=== PATIENT | female | born 1945 | race Caucasian/White ===

== ENCOUNTER 2018-07-22 14:53 | Observation (INO) | payer MEDICARE, OTHER ==
[2018-07-22] MEDS: HYDROCODONE/APAP (5/325) TAB PO (16:16)
[2018-07-22] MEDS ORDERED: ACETAMINOPHEN 325 MG TAB PO ×2 (19:30→20:00)
[2018-07-22] MEDS ORDERED: ONDANSETRON 4 MG INJ IV ×2 (19:30→20:00)
[2018-07-22 19:50] LABS: ADD MAN DIFF? NO
[2018-07-22 19:51] LABS: WHITE BLOOD COUNT 6.1 10^3/ul (4.8-10.8)
[2018-07-22 19:51] LABS: BASOPHILS % 0.7 % (0.0-2.0); EOSINOPHILS # 0.1 10^3/ul (0.0-0.5); EOSINOPHILS % 1.5 % (0.0-7.0); HEMATOCRIT 37.2 % (37.0-47.0); HEMOGLOBIN 12.2 g/dl (12.0-16.0); LYMPHOCYTES # 1.3 10^3/ul (0.8-2.9); LYMPHOCYTES % 20.8 % (15.0-51.0); MEAN CORPUSCULAR HEMOGLOBIN 29.8 pg (29.0-33.0); MEAN CORPUSCULAR HGB CONC 32.8 g/dl (32.0-37.0); MEAN CORPUSCULAR VOLUME 90.7 fl (82.0-101.0); MEAN PLATELET VOLUME 10.9 fl (7.4-10.4); MONOCYTE # 0.4 10^3/ul (0.3-0.9); MONOCYTES % 6.1 % (0.0-11.0); NEUTROPHIL # 4.3 10^3/ul (1.6-7.5); NEUTROPHILS % 70.6 % (39.0-77.0); PLATELET COUNT 179 10^3/UL (140-415); RED CELL DISTRIBUTION WIDTH 13.5 % (11.5-14.5)
[2018-07-22] MEDS ORDERED: NACL 0.9% 3 ML SYG IV (20:00)
[2018-07-22 20:03] LABS: ADD UMIC YES; UR ASCORBIC ACID NEGATIVE (NEGATIVE); UR BILIRUBIN (Dip) NEGATIVE (NEGATIVE); UR BLOOD (Dip) 2+ mg/dL (NEGATIVE); UR CALCIUM OXALATE CRYSTAL MODERATE /HPF (NONE SEEN); UR CLARITY SLIGHTLY CLOUDY (CLEAR); UR COLOR YELLOW (YELLOW); UR GLUCOSE (Dip) NEGATIVE (NEGATIVE); UR KETONES (Dip) NEGATIVE (NEGATIVE); UR LEUKOCYTE ESTERASE (Dip) 2+ Leu/ul (NEGATIVE); UR MUCUS FEW /HPF (NONE SEEN); UR NITRITE (Dip) NEGATIVE (NEGATIVE); UR RBC 37 /HPF (0-5); UR SPECIFIC GRAVITY (Dip) 1.021 (1.003-1.030); UR SQUAMOUS EPITHELIAL CELL FEW /HPF (FEW); UR TOTAL PROTEIN (Dip) NEGATIVE (NEGATIVE); UR UROBILINOGEN (Dip) NEGATIVE (NEGATIVE); UR WBC 30 /HPF (0-5)
[2018-07-22 20:09] LABS: ANION GAP 13 (5-13); BLOOD UREA NITROGEN 26 mg/dl (7-20); CALCIUM 9.5 mg/dl (8.4-10.2); CARBON DIOXIDE 27 mmol/L (21-31); CHLORIDE 104 mmol/L (97-110); CREATININE 0.84 mg/dl (0.44-1.00); GLUCOSE 174 mg/dl (70-220); POTASSIUM 3.9 mmol/L (3.5-5.1); SODIUM 144 mmol/L (135-144)
[2018-07-23] MEDS: HYDROCODONE/APAP (5/325) TAB PO (00:08)
[2018-07-23 05:12] LABS: ADD MAN DIFF? NO
[2018-07-23 05:15] LABS: BASOPHILS % 0.7 % (0.0-2.0); EOSINOPHILS # 0.2 10^3/ul (0.0-0.5); EOSINOPHILS % 2.7 % (0.0-7.0); HEMOGLOBIN 10.4 g/dl (12.0-16.0); LYMPHOCYTES # 1.3 10^3/ul (0.8-2.9); LYMPHOCYTES % 23.6 % (15.0-51.0); MEAN CORPUSCULAR HEMOGLOBIN 29.6 pg (29.0-33.0); MEAN CORPUSCULAR HGB CONC 32.5 g/dl (32.0-37.0); MEAN CORPUSCULAR VOLUME 91.2 fl (82.0-101.0); MEAN PLATELET VOLUME 11.8 fl (7.4-10.4); MONOCYTE # 0.5 10^3/ul (0.3-0.9); MONOCYTES % 9.5 % (0.0-11.0); NEUTROPHIL # 3.5 10^3/ul (1.6-7.5); NEUTROPHILS % 63.1 % (39.0-77.0); PLATELET COUNT 169 10^3/UL (140-415); RED BLOOD COUNT 3.51 10^6/ul (4.20-5.40); RED CELL DISTRIBUTION WIDTH 13.5 % (11.5-14.5)
[2018-07-23 05:15] LABS: WHITE BLOOD COUNT 5.5 10^3/ul (4.8-10.8)
[2018-07-23 05:36] LABS: HEMOGLOBIN A1C 5.4 % (0-5.9)
[2018-07-23 05:48] LABS: ALANINE AMINOTRANSFERASE 18 IU/L (13-69); ALBUMIN 3.8 g/dl (3.3-4.9); ALBUMIN/GLOBULIN RATIO 1.26; ALKALINE PHOSPHATASE 62 IU/L (42-121); ANION GAP 9 (5-13); ASPARTATE AMINO TRANSFERASE 27 IU/L (15-46); BILIRUBIN,INDIRECT 0.1 mg/dl (0-1.1); BILIRUBIN,TOTAL 0.1 mg/dl (0.2-1.3); BLOOD UREA NITROGEN 27 mg/dl (7-20); CALCIUM 9.2 mg/dl (8.4-10.2); CARBON DIOXIDE 26 mmol/L (21-31); CHLORIDE 106 mmol/L (97-110); CREATININE 0.84 mg/dl (0.44-1.00); GLUCOSE 121 mg/dl (70-220); MAGNESIUM 1.7 mg/dl (1.7-2.5); POTASSIUM 3.5 mmol/L (3.5-5.1); SODIUM 141 mmol/L (135-144); TOTAL PROTEIN 6.8 g/dl (6.1-8.1)
== END 2018-07-23 11:45 | disposition home or self-care (01) ==
LOC: MS1 07-23 09:14 → E/R 14:53 → MS1 19:15
DX: R07.89 Other chest pain (principal); M54.5 Low back pain; W01.0XXA Fall on same level from slipping, tripping and stumbling without subsequent striking against object, initial encounter; E11.43 Type 2 diabetes mellitus with diabetic autonomic (poly)neuropathy; K31.84 Gastroparesis; M48.061 Spinal stenosis, lumbar region without neurogenic claudication; M47.896 Other spondylosis, lumbar region
CPT/HCPCS: 36415; 71045; 71100; 72128; 72131; 80048; 80053; 81001; 83036; 83735; 85025; 97161; 97167; 99285-25; G0378

== ENCOUNTER 2018-09-12 19:40 | Emergency (ER) | payer MEDICARE, OTHER ==
[2018-09-12 20:21] LABS: ADD MAN DIFF? NO
[2018-09-12 20:27] LABS: INR 0.95; PROTIME 12.8 Sec (11.9-14.9)
[2018-09-12 20:28] LABS: PARTIAL THROMBOPLASTIN TIME 32.3 Sec (23.0-35.0)
[2018-09-12 20:32] LABS: ANION GAP 11 (5-13); BLOOD UREA NITROGEN 24 mg/dl (7-20); CALCIUM 9.1 mg/dl (8.4-10.2); CARBON DIOXIDE 31 mmol/L (21-31); CHLORIDE 103 mmol/L (97-110); GLUCOSE 114 mg/dl (70-220); POTASSIUM 3.2 mmol/L (3.5-5.1); SODIUM 145 mmol/L (135-144)
[2018-09-12 20:37] LABS: WHITE BLOOD COUNT 5.6 10^3/ul (4.8-10.8)
[2018-09-12 20:37] LABS: BASOPHIL # 0.1 10^3/ul (0.0-0.1); BASOPHILS % 0.9 % (0.0-2.0); EOSINOPHILS # 0.2 10^3/ul (0.0-0.5); EOSINOPHILS % 3.6 % (0.0-7.0); HEMATOCRIT 33.2 % (37.0-47.0); HEMOGLOBIN 10.7 g/dl (12.0-16.0); LYMPHOCYTES % 18.6 % (15.0-51.0); MEAN CORPUSCULAR HEMOGLOBIN 28.8 pg (29.0-33.0); MEAN CORPUSCULAR HGB CONC 32.2 g/dl (32.0-37.0); MEAN CORPUSCULAR VOLUME 89.2 fl (82.0-101.0); MEAN PLATELET VOLUME 11.1 fl (7.4-10.4); MONOCYTE # 0.4 10^3/ul (0.3-0.9); MONOCYTES % 6.6 % (0.0-11.0); NEUTROPHIL # 3.9 10^3/ul (1.6-7.5); NEUTROPHILS % 69.9 % (39.0-77.0); PLATELET COUNT 179 10^3/UL (140-415); RED BLOOD COUNT 3.72 10^6/ul (4.20-5.40); RED CELL DISTRIBUTION WIDTH 13.6 % (11.5-14.5)
[2018-09-12 20:43] LABS: TROPONIN-I < 0.012 ng/ml (0.000-0.120)
[2018-09-12] MEDS: SOD CHLORIDE 0.9% 1,000 ML IV (21:32)
[2018-09-12 21:56] LABS: URINE PH (Dip) POC 5.5 (5.0-8.5)
[2018-09-12 21:56] LABS: URINE BLOOD (Dip) POC 3+ (NEGATIVE); URINE GLUCOSE (Dip) POC Negative (NEGATIVE); URINE KETONES (Dip) POC Negative (NEGATIVE); URINE LEUKOCYTE EST (Dip) POC 1+ (NEGATIVE); URINE NITRITE (Dip) POC Negative (NEGATIVE); URINE TOTAL PROTEIN POC 2+ (NEGATIVE)
[2018-09-12 22:15] LABS: ADD UMIC YES; UR ASCORBIC ACID NEGATIVE (NEGATIVE); UR BILIRUBIN (Dip) NEGATIVE (NEGATIVE); UR BLOOD (Dip) 3+ mg/dL (NEGATIVE); UR CLARITY SLIGHTLY CLOUDY (CLEAR); UR COLOR YELLOW (YELLOW); UR GLUCOSE (Dip) NEGATIVE (NEGATIVE); UR KETONES (Dip) NEGATIVE (NEGATIVE); UR LEUKOCYTE ESTERASE (Dip) 1+ Leu/ul (NEGATIVE); UR NITRITE (Dip) NEGATIVE (NEGATIVE); UR RBC > 182 /HPF (0-5); UR SPECIFIC GRAVITY (Dip) 1.016 (1.003-1.030); UR TOTAL PROTEIN (Dip) NEGATIVE (NEGATIVE); UR UROBILINOGEN (Dip) NEGATIVE (NEGATIVE); UR WBC 14 /HPF (0-5)
[2018-09-12] MEDS: NITROFURANTOIN (SR) 100 MG CAP PO (23:28)
[2018-09-13] MEDS: IBUPROFEN 200 MG TAB PO (00:18)
== END 2018-09-13 01:40 | disposition home or self-care (01) ==
LOC: E/R 09-13 01:40
DX: I11.0 Hypertensive heart disease with heart failure (principal); I50.9 Heart failure, unspecified; E11.9 Type 2 diabetes mellitus without complications; N39.0 Urinary tract infection, site not specified; H53.8 Other visual disturbances
CPT/HCPCS: 36415; 70450; 71045; 80048; 81001; 81003; 84484; 85025; 85610; 85730; 96360; 99285-25

== ENCOUNTER 2018-09-25 19:10 | Emergency (ER) | payer MEDICARE, OTHER ==
[2018-09-25] MEDS: IBUPROFEN 600 MG TAB PO (21:45)
[2018-09-25] MEDS: predniSONE 20 MG TAB PO (22:21)
== END 2018-09-25 23:49 | disposition home or self-care (01) ==
LOC: FTE 23:49
DX: M79.671 Pain in right foot (principal); I11.0 Hypertensive heart disease with heart failure; I50.9 Heart failure, unspecified
CPT/HCPCS: 73630; 99283-25

== ENCOUNTER 2018-10-02 19:41 | Emergency (ER) | payer MEDICARE, OTHER | END 2018-10-02 22:00 | disposition home or self-care (01) | LOC: FTE 19:41 | DX: L30.9 Dermatitis, unspecified (principal); I11.0 Hypertensive heart disease with heart failure; I50.9 Heart failure, unspecified; E11.9 Type 2 diabetes mellitus without complications | CPT/HCPCS: 99283 ==

== ENCOUNTER 2018-10-06 14:08 | Observation (INO) | payer MEDICARE, OTHER ==
[2018-10-06 14:58] LABS: ADD MAN DIFF? NO
[2018-10-06] MEDS: ONDANSETRON 4 MG INJ IV ×3 (14:58→23:03)
[2018-10-06] MEDS: SOD CHLORIDE 0.9% 1,000 ML IV ×2 (14:59→19:31)
[2018-10-06 15:03] LABS: ABNORMAL IP MESSAGE 1; BASOPHILS % 0.6 % (0.0-2.0); EOSINOPHILS # 0.1 10^3/ul (0.0-0.5); EOSINOPHILS % 1.4 % (0.0-7.0); HEMATOCRIT 35.1 % (37.0-47.0); HEMOGLOBIN 11.4 g/dl (12.0-16.0); LYMPHOCYTES # 0.6 10^3/ul (0.8-2.9); LYMPHOCYTES % 8.7 % (15.0-51.0); MEAN CORPUSCULAR HEMOGLOBIN 28.9 pg (29.0-33.0); MEAN CORPUSCULAR HGB CONC 32.5 g/dl (32.0-37.0); MEAN CORPUSCULAR VOLUME 89.1 fl (82.0-101.0); MEAN PLATELET VOLUME 10.8 fl (7.4-10.4); MONOCYTE # 0.3 10^3/ul (0.3-0.9); MONOCYTES % 4.7 % (0.0-11.0); NEUTROPHIL # 5.5 10^3/ul (1.6-7.5); NEUTROPHILS % 84.1 % (39.0-77.0); PLATELET COUNT 197 10^3/UL (140-415); RED BLOOD COUNT 3.94 10^6/ul (4.20-5.40); RED CELL DISTRIBUTION WIDTH 13.5 % (11.5-14.5)
[2018-10-06 15:03] LABS: WHITE BLOOD COUNT 6.6 10^3/ul (4.8-10.8)
[2018-10-06 15:16] LABS: POSITIVE DIFF @See below
[2018-10-06 15:22] LABS: ALANINE AMINOTRANSFERASE 16 IU/L (13-69); ALBUMIN 4.3 g/dl (3.3-4.9); ALBUMIN/GLOBULIN RATIO 1.13; ALKALINE PHOSPHATASE 101 IU/L (42-121); ANION GAP 10 (5-13); ASPARTATE AMINO TRANSFERASE 29 IU/L (15-46); BILIRUBIN,INDIRECT 0.5 mg/dl (0-1.1); BILIRUBIN,TOTAL 0.5 mg/dl (0.2-1.3); BLOOD UREA NITROGEN 23 mg/dl (7-20); CALCIUM 9.8 mg/dl (8.4-10.2); CARBON DIOXIDE 28 mmol/L (21-31); CHLORIDE 105 mmol/L (97-110); CREATININE 0.85 mg/dl (0.44-1.00); GLUCOSE 127 mg/dl (70-220); LIPASE 68 U/L (23-300); POTASSIUM 3.5 mmol/L (3.5-5.1); SODIUM 143 mmol/L (135-144); TOTAL PROTEIN 8.1 g/dl (6.1-8.1)
[2018-10-06] MEDS ORDERED: ACETAMINOPHEN 325 MG TAB PO (19:30)
[2018-10-06] MEDS ORDERED: NACL 0.9% 3 ML SYG IV (20:00)
[2018-10-06] MEDS ORDERED: HYDROmorphONE 0.5 MG/0.5 ML SYG IV (20:00)
[2018-10-06] MEDS: morphine 2 MG INJ IV (21:34)
[2018-10-07 05:51] LABS: ADD MAN DIFF? NO
[2018-10-07 05:57] LABS: BASOPHILS % 0.8 % (0.0-2.0); EOSINOPHILS # 0.1 10^3/ul (0.0-0.5); EOSINOPHILS % 2.1 % (0.0-7.0); HEMATOCRIT 28.9 % (37.0-47.0); HEMOGLOBIN 9.5 g/dl (12.0-16.0); LYMPHOCYTES # 0.8 10^3/ul (0.8-2.9); LYMPHOCYTES % 15.7 % (15.0-51.0); MEAN CORPUSCULAR HEMOGLOBIN 28.8 pg (29.0-33.0); MEAN CORPUSCULAR HGB CONC 32.9 g/dl (32.0-37.0); MEAN CORPUSCULAR VOLUME 87.6 fl (82.0-101.0); MEAN PLATELET VOLUME 11.3 fl (7.4-10.4); MONOCYTE # 0.3 10^3/ul (0.3-0.9); MONOCYTES % 6.3 % (0.0-11.0); NEUTROPHIL # 3.9 10^3/ul (1.6-7.5); NEUTROPHILS % 74.7 % (39.0-77.0); PLATELET COUNT 173 10^3/UL (140-415); RED CELL DISTRIBUTION WIDTH 13.4 % (11.5-14.5)
[2018-10-07 05:57] LABS: WHITE BLOOD COUNT 5.2 10^3/ul (4.8-10.8)
[2018-10-07 06:30] LABS: ALANINE AMINOTRANSFERASE 16 IU/L (13-69); ALBUMIN 3.3 g/dl (3.3-4.9); ALKALINE PHOSPHATASE 73 IU/L (42-121); ANION GAP 7 (5-13); ASPARTATE AMINO TRANSFERASE 22 IU/L (15-46); BILIRUBIN,INDIRECT 0.4 mg/dl (0-1.1); BILIRUBIN,TOTAL 0.4 mg/dl (0.2-1.3); BLOOD UREA NITROGEN 15 mg/dl (7-20); CALCIUM 8.9 mg/dl (8.4-10.2); CARBON DIOXIDE 25 mmol/L (21-31); CHLORIDE 111 mmol/L (97-110); CREATININE 0.72 mg/dl (0.44-1.00); GLUCOSE 119 mg/dl (70-220); POTASSIUM 3.4 mmol/L (3.5-5.1); SODIUM 143 mmol/L (135-144); TOTAL PROTEIN 6.3 g/dl (6.1-8.1)
[2018-10-07 06:42] LABS: HEMOGLOBIN A1C 5.6 % (0-5.9)
== END 2018-10-07 11:55 | disposition home or self-care (01) ==
LOC: E/R 14:08 → PP2 19:18
DX: E11.43 Type 2 diabetes mellitus with diabetic autonomic (poly)neuropathy (principal); K31.84 Gastroparesis
CPT/HCPCS: 36415; 74176; 80053; 83036; 83690; 85025; 96374; 99285-25; G0378

== ENCOUNTER 2018-10-15 13:32 | Observation (INO) | payer MEDICARE, OTHER ==
[2018-10-15 19:52] LABS: ADD MAN DIFF? NO
[2018-10-15 19:56] LABS: BASOPHIL # 0.1 10^3/ul (0.0-0.1); BASOPHILS % 1.1 % (0.0-2.0); EOSINOPHILS # 0.2 10^3/ul (0.0-0.5); EOSINOPHILS % 3.4 % (0.0-7.0); HEMATOCRIT 36.3 % (37.0-47.0); HEMOGLOBIN 11.7 g/dl (12.0-16.0); LYMPHOCYTES # 1.2 10^3/ul (0.8-2.9); LYMPHOCYTES % 19.7 % (15.0-51.0); MEAN CORPUSCULAR HGB CONC 32.2 g/dl (32.0-37.0); MEAN CORPUSCULAR VOLUME 89.9 fl (82.0-101.0); MEAN PLATELET VOLUME 11.5 fl (7.4-10.4); MONOCYTE # 0.5 10^3/ul (0.3-0.9); MONOCYTES % 7.5 % (0.0-11.0); NEUTROPHIL # 4.2 10^3/ul (1.6-7.5); PLATELET COUNT 191 10^3/UL (140-415); RED BLOOD COUNT 4.04 10^6/ul (4.20-5.40); RED CELL DISTRIBUTION WIDTH 13.6 % (11.5-14.5)
[2018-10-15 19:56] LABS: WHITE BLOOD COUNT 6.2 10^3/ul (4.8-10.8)
[2018-10-15 20:02] LABS: POSITIVE DIFF @See below
[2018-10-15] MEDS: ONDANSETRON 4 MG INJ IV (20:06)
[2018-10-15 20:09] LABS: ADD UMIC YES; UR ASCORBIC ACID NEGATIVE (NEGATIVE); UR BACTERIA FEW /HPF (NONE SEEN); UR BILIRUBIN (Dip) NEGATIVE (NEGATIVE); UR BLOOD (Dip) 3+ mg/dL (NEGATIVE); UR CLARITY CLOUDY (CLEAR); UR COLOR YELLOW (YELLOW); UR GLUCOSE (Dip) NEGATIVE (NEGATIVE); UR KETONES (Dip) NEGATIVE (NEGATIVE); UR LEUKOCYTE ESTERASE (Dip) 3+ Leu/ul (NEGATIVE); UR MUCUS FEW /HPF (NONE SEEN); UR NITRITE (Dip) NEGATIVE (NEGATIVE); UR RBC > 182 /HPF (0-5); UR SPECIFIC GRAVITY (Dip) 1.025 (1.003-1.030); UR SQUAMOUS EPITHELIAL CELL FEW /HPF (FEW); UR TOTAL PROTEIN (Dip) 2+ mg/dl (NEGATIVE); UR UROBILINOGEN (Dip) NEGATIVE (NEGATIVE); UR WBC 117 /HPF (0-5)
[2018-10-15 20:14] LABS: ALANINE AMINOTRANSFERASE 17 IU/L (13-69); ALBUMIN 4.3 g/dl (3.3-4.9); ALBUMIN/GLOBULIN RATIO 1.16; ALKALINE PHOSPHATASE 110 IU/L (42-121); ANION GAP 8 (5-13); ASPARTATE AMINO TRANSFERASE 28 IU/L (15-46); BILIRUBIN,INDIRECT 0.4 mg/dl (0-1.1); BILIRUBIN,TOTAL 0.4 mg/dl (0.2-1.3); BLOOD UREA NITROGEN 25 mg/dl (7-20); CALCIUM 9.4 mg/dl (8.4-10.2); CARBON DIOXIDE 30 mmol/L (21-31); CHLORIDE 105 mmol/L (97-110); CREATININE 0.85 mg/dl (0.44-1.00); GLUCOSE 129 mg/dl (70-220); LIPASE 102 U/L (23-300); POTASSIUM 3.6 mmol/L (3.5-5.1); SODIUM 143 mmol/L (135-144)
[2018-10-15 20:25] LABS: TROPONIN-I < 0.012 ng/ml (0.000-0.120)
[2018-10-15] MEDS: METOCLOPRAMIDE 10 MG INJ IV (21:10)
[2018-10-15] MEDS: DIPHENHYDRAMINE 50 MG INJ IV (21:10)
[2018-10-15] MEDS: CEFTRIAXONE 1 GM/50 ML (PMX) 50 ML IVPB (21:11)
[2018-10-15] MEDS: SODIUM CHLORIDE 0.9% 1L BAG IV* (21:11)
[2018-10-15 23:05] LABS: LACTIC ACID 0.8 mmol/L (0.5-2.0)
[2018-10-15] MEDS ORDERED: NACL 0.9% 3 ML SYG IV (23:30)
[2018-10-15] MEDS ORDERED: ALBUTEROL/IPRATROPIUM (NEB) 3 ML AMP HHN (23:30)
[2018-10-15] MEDS: DEXTROSE 5%-0.45% NACL 1,000 ML IV (23:56)
[2018-10-16 01:15] LABS: LACTIC ACID 0.6 mmol/L (0.5-2.0)
[2018-10-16] MEDS: METOCLOPRAMIDE 10 MG INJ IV (04:32)
[2018-10-16 06:36] LABS: ADD MAN DIFF? NO
[2018-10-16 06:37] LABS: WHITE BLOOD COUNT 5.1 10^3/ul (4.8-10.8)
[2018-10-16 06:37] LABS: BASOPHIL # 0.1 10^3/ul (0.0-0.1); BASOPHILS % 1.2 % (0.0-2.0); EOSINOPHILS # 0.2 10^3/ul (0.0-0.5); EOSINOPHILS % 4.7 % (0.0-7.0); HEMATOCRIT 31.9 % (37.0-47.0); HEMOGLOBIN 10.2 g/dl (12.0-16.0); LYMPHOCYTES # 0.9 10^3/ul (0.8-2.9); LYMPHOCYTES % 18.5 % (15.0-51.0); MEAN CORPUSCULAR HEMOGLOBIN 28.5 pg (29.0-33.0); MEAN CORPUSCULAR VOLUME 89.1 fl (82.0-101.0); MEAN PLATELET VOLUME 11.1 fl (7.4-10.4); MONOCYTE # 0.5 10^3/ul (0.3-0.9); MONOCYTES % 9.1 % (0.0-11.0); NEUTROPHIL # 3.4 10^3/ul (1.6-7.5); NEUTROPHILS % 66.1 % (39.0-77.0); PLATELET COUNT 173 10^3/UL (140-415); RED BLOOD COUNT 3.58 10^6/ul (4.20-5.40); RED CELL DISTRIBUTION WIDTH 13.5 % (11.5-14.5)
[2018-10-16 07:00] LABS: ALANINE AMINOTRANSFERASE 14 IU/L (13-69); ALBUMIN 3.5 g/dl (3.3-4.9); ALBUMIN/GLOBULIN RATIO 1.29; ALKALINE PHOSPHATASE 76 IU/L (42-121); ANION GAP 5 (5-13); ASPARTATE AMINO TRANSFERASE 23 IU/L (15-46); BILIRUBIN,INDIRECT 0.4 mg/dl (0-1.1); BILIRUBIN,TOTAL 0.4 mg/dl (0.2-1.3); BLOOD UREA NITROGEN 20 mg/dl (7-20); CALCIUM 8.8 mg/dl (8.4-10.2); CARBON DIOXIDE 29 mmol/L (21-31); CHLORIDE 108 mmol/L (97-110); GLUCOSE 119 mg/dl (70-220); PHOSPHORUS 3.6 mg/dl (2.5-4.9); POTASSIUM 3.5 mmol/L (3.5-5.1); SODIUM 142 mmol/L (135-144); TOTAL PROTEIN 6.2 g/dl (6.1-8.1)
[2018-10-16 07:16] LABS: MAGNESIUM 1.7 mg/dl (1.7-2.5)
[2018-10-16] MEDS: CEFTRIAXONE 1 GM/50 ML (PMX) 50 ML IVPB (09:06)
[2018-10-16] MEDS: HEPARIN 5,000 UNIT/1 ML VIAL SC ×2 (09:11→21:21)
[2018-10-16] MEDS: DEXTROSE 5%-0.45% NACL 1,000 ML IV ×3 (14:00→16:00)
[2018-10-17] MEDS: DEXTROSE 5%-0.45% NACL 1,000 ML IV ×4 (00:25→23:51)
[2018-10-17] MEDS: METOCLOPRAMIDE 10 MG INJ IV (06:45)
[2018-10-17 08:15] LABS: ADD MAN DIFF? NO
[2018-10-17 08:25] LABS: WHITE BLOOD COUNT 4.8 10^3/ul (4.8-10.8)
[2018-10-17 08:25] LABS: BASOPHIL # 0.1 10^3/ul (0.0-0.1); BASOPHILS % 1.5 % (0.0-2.0); EOSINOPHILS # 0.2 10^3/ul (0.0-0.5); EOSINOPHILS % 4.8 % (0.0-7.0); HEMATOCRIT 29.1 % (37.0-47.0); HEMOGLOBIN 9.3 g/dl (12.0-16.0); MEAN CORPUSCULAR HEMOGLOBIN 28.4 pg (29.0-33.0); MEAN CORPUSCULAR VOLUME 88.7 fl (82.0-101.0); MEAN PLATELET VOLUME 11.6 fl (7.4-10.4); MONOCYTE # 0.4 10^3/ul (0.3-0.9); MONOCYTES % 8.6 % (0.0-11.0); NEUTROPHILS % 63.9 % (39.0-77.0); PLATELET COUNT 173 10^3/UL (140-415); RED BLOOD COUNT 3.28 10^6/ul (4.20-5.40); RED CELL DISTRIBUTION WIDTH 13.4 % (11.5-14.5)
[2018-10-17] MEDS: HEPARIN 5,000 UNIT/1 ML VIAL SC ×2 (09:00→21:00)
[2018-10-17 09:01] LABS: ANION GAP 7 (5-13); BLOOD UREA NITROGEN 21 mg/dl (7-20); CALCIUM 8.6 mg/dl (8.4-10.2); CARBON DIOXIDE 26 mmol/L (21-31); CHLORIDE 110 mmol/L (97-110); CREATININE 0.94 mg/dl (0.44-1.00); GLUCOSE 100 mg/dl (70-220); POTASSIUM 3.5 mmol/L (3.5-5.1); SODIUM 143 mmol/L (135-144)
[2018-10-17] MEDS: CEFTRIAXONE 1 GM/50 ML (PMX) 50 ML IVPB (09:35)
[2018-10-17] MEDS: DOCUSATE SODIUM 100 MG CAP PO ×2 (13:21→21:23)
[2018-10-17] MEDS: ERYTHROMYCIN BASE (DR) 250 MG CAP PO ×2 (13:43→21:23)
[2018-10-18] MEDS: ERYTHROMYCIN BASE (DR) 250 MG CAP PO (08:49)
[2018-10-18] MEDS: DOCUSATE SODIUM 100 MG CAP PO (08:49)
[2018-10-18] MEDS: HEPARIN 5,000 UNIT/1 ML VIAL SC (08:49)
[2018-10-18] MEDS: CEFTRIAXONE 1 GM/50 ML (PMX) 50 ML IVPB (08:49)
[2018-10-18] MEDS: DEXTROSE 5%-0.45% NACL 1,000 ML IV (13:55)
== END 2018-10-18 16:50 | disposition hospice, home (50) ==
LOC: E/R 13:32 → 2NE 20:59
PROVIDERS: Internal Medicine
DX: N39.0 Urinary tract infection, site not specified (principal); K31.84 Gastroparesis; N13.2 Hydronephrosis with renal and ureteral calculous obstruction; D64.9 Anemia, unspecified; F32.9 Major depressive disorder, single episode, unspecified; K21.9 Gastro-esophageal reflux disease without esophagitis
CPT/HCPCS: 36415; 74019; 74176; 80048; 80053; 81001; 83605; 83690; 83735; 84100; 84484; 85025; 87040-91; 87081; 87086; 93005; 96374; 99285-25

== ENCOUNTER 2018-12-04 14:33 | Observation (INO) | payer MEDICARE, OTHER ==
[2018-12-04] MEDS: ONDANSETRON 4 MG INJ IV (16:34)
[2018-12-04] MEDS: SOD CHLORIDE 0.9% 1,000 ML IV ×2 (16:34→21:16)
[2018-12-04 17:05] LABS: ADD UMIC YES; UR ASCORBIC ACID NEGATIVE (NEGATIVE); UR BILIRUBIN (Dip) NEGATIVE (NEGATIVE); UR BLOOD (Dip) 3+ mg/dL (NEGATIVE); UR CLARITY CLOUDY (CLEAR); UR COLOR YELLOW (YELLOW); UR GLUCOSE (Dip) 1+ mg/dL (NEGATIVE); UR KETONES (Dip) NEGATIVE (NEGATIVE); UR LEUKOCYTE ESTERASE (Dip) 2+ Leu/ul (NEGATIVE); UR MUCUS FEW /HPF (NONE SEEN); UR NITRITE (Dip) NEGATIVE (NEGATIVE); UR RBC > 182 /HPF (0-5); UR SPECIFIC GRAVITY (Dip) 1.021 (1.003-1.030); UR TOTAL PROTEIN (Dip) 1+ mg/dl (NEGATIVE); UR UROBILINOGEN (Dip) NEGATIVE (NEGATIVE); UR WBC 36 /HPF (0-5)
[2018-12-04 17:16] LABS: ADD MAN DIFF? NO
[2018-12-04 17:22] LABS: BASOPHIL # 0.1 10^3/ul (0.0-0.1); BASOPHILS % 0.8 % (0.0-2.0); EOSINOPHILS # 0.1 10^3/ul (0.0-0.5); EOSINOPHILS % 1.4 % (0.0-7.0); HEMATOCRIT 33.4 % (37.0-47.0); HEMOGLOBIN 10.8 g/dl (12.0-16.0); LYMPHOCYTES # 0.8 10^3/ul (0.8-2.9); LYMPHOCYTES % 11.5 % (15.0-51.0); MEAN CORPUSCULAR HEMOGLOBIN 27.8 pg (29.0-33.0); MEAN CORPUSCULAR HGB CONC 32.3 g/dl (32.0-37.0); MEAN CORPUSCULAR VOLUME 86.1 fl (82.0-101.0); MEAN PLATELET VOLUME 10.2 fl (7.4-10.4); MONOCYTE # 0.4 10^3/ul (0.3-0.9); MONOCYTES % 5.7 % (0.0-11.0); NEUTROPHIL # 5.2 10^3/ul (1.6-7.5); NEUTROPHILS % 80.3 % (39.0-77.0); PLATELET COUNT 225 10^3/UL (140-415); RED BLOOD COUNT 3.88 10^6/ul (4.20-5.40); RED CELL DISTRIBUTION WIDTH 13.8 % (11.5-14.5)
[2018-12-04 17:22] LABS: WHITE BLOOD COUNT 6.5 10^3/ul (4.8-10.8)
[2018-12-04] MEDS: CEFTRIAXONE 1 GM/50 ML (PMX) 50 ML IVPB (17:26)
[2018-12-04 17:48] LABS: ALANINE AMINOTRANSFERASE 17 IU/L (13-69); ALBUMIN 3.9 g/dl (3.3-4.9); ALBUMIN/GLOBULIN RATIO 1.11; ALKALINE PHOSPHATASE 78 IU/L (42-121); ANION GAP 7 (5-13); ASPARTATE AMINO TRANSFERASE 21 IU/L (15-46); BILIRUBIN,INDIRECT 0.3 mg/dl (0-1.1); BILIRUBIN,TOTAL 0.3 mg/dl (0.2-1.3); BLOOD UREA NITROGEN 33 mg/dl (7-20); CALCIUM 8.8 mg/dl (8.4-10.2); CARBON DIOXIDE 26 mmol/L (21-31); CHLORIDE 109 mmol/L (97-110); CREATININE 1.11 mg/dl (0.44-1.00); GLUCOSE 114 mg/dl (70-220); LIPASE 207 U/L (23-300); POTASSIUM 4.1 mmol/L (3.5-5.1); SODIUM 142 mmol/L (135-144); TOTAL PROTEIN 7.4 g/dl (6.1-8.1)
[2018-12-04 17:59] LABS: TROPONIN-I < 0.012 ng/ml (0.000-0.120)
[2018-12-04] MEDS ORDERED: ONDANSETRON 4 MG INJ IV (18:30)
[2018-12-04] MEDS ORDERED: NACL 0.9% 3 ML SYG IV (18:30)
[2018-12-04] MEDS ORDERED: DOCUSATE SODIUM 100 MG CAP PO (18:30)
[2018-12-04] MEDS ORDERED: ERTAPENEM SODIUM 1 GM in SOD CHLORIDE 0.9% 100 ML IVPB (19:00)
[2018-12-04] MEDS ORDERED: CEFEPIME 1GM/50 ML (PMX) 50 ML IV (21:00)
[2018-12-04] MEDS: METOCLOPRAMIDE 10 MG INJ IV (21:16)
[2018-12-04] MEDS: MEROPENEM 1 GM/50ML(PMX) 50 ML IVPB (21:17)
[2018-12-04] MEDS: LORAZEPAM 0.5 MG TAB PO (21:35)
[2018-12-05] MEDS: METOCLOPRAMIDE 10 MG INJ IV ×4 (01:06→17:40)
[2018-12-05] MEDS: SOD CHLORIDE 0.9% 1,000 ML IV ×3 (03:59→22:13)
[2018-12-05 06:15] LABS: WHITE BLOOD COUNT 6.3 10^3/ul (4.8-10.8)
[2018-12-05 06:15] LABS: ADD MAN DIFF? NO; BASOPHIL # 0.1 10^3/ul (0.0-0.1); BASOPHILS % 0.8 % (0.0-2.0); EOSINOPHILS # 0.2 10^3/ul (0.0-0.5); EOSINOPHILS % 3.5 % (0.0-7.0); HEMATOCRIT 30.9 % (37.0-47.0); HEMOGLOBIN 9.8 g/dl (12.0-16.0); LYMPHOCYTES # 1.1 10^3/ul (0.8-2.9); LYMPHOCYTES % 17.4 % (15.0-51.0); MEAN CORPUSCULAR HEMOGLOBIN 27.8 pg (29.0-33.0); MEAN CORPUSCULAR HGB CONC 31.7 g/dl (32.0-37.0); MEAN CORPUSCULAR VOLUME 87.8 fl (82.0-101.0); MEAN PLATELET VOLUME 10.4 fl (7.4-10.4); MONOCYTE # 0.5 10^3/ul (0.3-0.9); MONOCYTES % 8.5 % (0.0-11.0); NEUTROPHIL # 4.3 10^3/ul (1.6-7.5); NEUTROPHILS % 69.5 % (39.0-77.0); PLATELET COUNT 213 10^3/UL (140-415); RED BLOOD COUNT 3.52 10^6/ul (4.20-5.40); RED CELL DISTRIBUTION WIDTH 13.8 % (11.5-14.5)
[2018-12-05] MEDS: PANTOPRAZOLE (EC) 40 MG TAB PO (06:18)
[2018-12-05 06:46] LABS: ANION GAP 7 (5-13); BLOOD UREA NITROGEN 28 mg/dl (7-20); CALCIUM 8.6 mg/dl (8.4-10.2); CARBON DIOXIDE 27 mmol/L (21-31); CHLORIDE 110 mmol/L (97-110); CREATININE 1.02 mg/dl (0.44-1.00); GLUCOSE 107 mg/dl (70-220); MAGNESIUM 1.9 mg/dl (1.7-2.5); POTASSIUM 4.4 mmol/L (3.5-5.1); SODIUM 144 mmol/L (135-144)
[2018-12-05] MEDS: ENOXAPARIN 40 MG/0.4 ML SYG SC (08:56)
[2018-12-05] MEDS: MEROPENEM 1 GM/50ML(PMX) 50 ML IVPB ×2 (08:56→20:08)
[2018-12-06] MEDS: METOCLOPRAMIDE 10 MG INJ IV ×3 (05:28→12:00)
[2018-12-06] MEDS: PANTOPRAZOLE (EC) 40 MG TAB PO (05:29)
[2018-12-06 06:22] LABS: ADD MAN DIFF? NO
[2018-12-06 06:32] LABS: BASOPHIL # 0.1 10^3/ul (0.0-0.1); BASOPHILS % 0.9 % (0.0-2.0); EOSINOPHILS # 0.3 10^3/ul (0.0-0.5); EOSINOPHILS % 4.4 % (0.0-7.0); HEMATOCRIT 30.1 % (37.0-47.0); HEMOGLOBIN 9.7 g/dl (12.0-16.0); LYMPHOCYTES # 1.1 10^3/ul (0.8-2.9); LYMPHOCYTES % 19.3 % (15.0-51.0); MEAN CORPUSCULAR HEMOGLOBIN 27.6 pg (29.0-33.0); MEAN CORPUSCULAR HGB CONC 32.2 g/dl (32.0-37.0); MEAN CORPUSCULAR VOLUME 85.8 fl (82.0-101.0); MEAN PLATELET VOLUME 10.8 fl (7.4-10.4); MONOCYTE # 0.4 10^3/ul (0.3-0.9); MONOCYTES % 7.7 % (0.0-11.0); NEUTROPHIL # 3.9 10^3/ul (1.6-7.5); NEUTROPHILS % 67.3 % (39.0-77.0); PLATELET COUNT 213 10^3/UL (140-415); RED BLOOD COUNT 3.51 10^6/ul (4.20-5.40); RED CELL DISTRIBUTION WIDTH 13.5 % (11.5-14.5)
[2018-12-06 06:32] LABS: WHITE BLOOD COUNT 5.7 10^3/ul (4.8-10.8)
[2018-12-06 07:01] LABS: ALBUMIN 3.1 g/dl (3.3-4.9); ANION GAP 5 (5-13); BLOOD UREA NITROGEN 20 mg/dl (7-20); CALCIUM 8.4 mg/dl (8.4-10.2); CARBON DIOXIDE 25 mmol/L (21-31); CHLORIDE 112 mmol/L (97-110); CREATININE 0.77 mg/dl (0.44-1.00); GLUCOSE 106 mg/dl (70-220); MAGNESIUM 1.8 mg/dl (1.7-2.5); PHOSPHORUS 3.4 mg/dl (2.5-4.9); SODIUM 142 mmol/L (135-144)
[2018-12-06] MEDS: SOD CHLORIDE 0.9% 1,000 ML IV (08:36)
[2018-12-06] MEDS: ENOXAPARIN 40 MG/0.4 ML SYG SC (08:37)
[2018-12-06] MEDS: MEROPENEM 1 GM/50ML(PMX) 50 ML IVPB (08:37)
[2018-12-06] MEDS: ACETAMINOPHEN 325 MG TAB PO (08:58)
[2018-12-06] MEDS: FOSFOMYCIN 3 GM PACKET PO (12:43)
== END 2018-12-06 13:55 | disposition home or self-care (01) ==
LOC: E/R 14:33 → PP2 17:23
DX: N30.90 Cystitis, unspecified without hematuria (principal); E86.0 Dehydration; N39.0 Urinary tract infection, site not specified; K31.84 Gastroparesis; G89.29 Other chronic pain; R10.9 Unspecified abdominal pain; F41.9 Anxiety disorder, unspecified; F32.9 Major depressive disorder, single episode, unspecified; N17.9 Acute kidney failure, unspecified
CPT/HCPCS: 80048; 80053; 80069; 81001; 83690; 83735; 84484; 85025; 86850; 86900; 86901; 87086; 93005; 96374; 99217; 99285-25

== ENCOUNTER 2019-01-24 16:08 | Emergency (ER) | payer MEDICARE, OTHER ==
[2019-01-24 19:01] LABS: ADD MAN DIFF? NO
[2019-01-24 19:07] LABS: BASOPHILS % 0.7 % (0.0-2.0); EOSINOPHILS # 0.2 10^3/ul (0.0-0.5); EOSINOPHILS % 2.7 % (0.0-7.0); HEMATOCRIT 34.7 % (37.0-47.0); LYMPHOCYTES % 15.9 % (15.0-51.0); MEAN CORPUSCULAR HEMOGLOBIN 28.1 pg (29.0-33.0); MEAN CORPUSCULAR HGB CONC 31.7 g/dl (32.0-37.0); MEAN CORPUSCULAR VOLUME 88.7 fl (82.0-101.0); MEAN PLATELET VOLUME 10.8 fl (7.4-10.4); MONOCYTE # 0.4 10^3/ul (0.3-0.9); MONOCYTES % 7.3 % (0.0-11.0); NEUTROPHIL # 4.4 10^3/ul (1.6-7.5); NEUTROPHILS % 73.1 % (39.0-77.0); PLATELET COUNT 215 10^3/UL (140-415); RED BLOOD COUNT 3.91 10^6/ul (4.20-5.40)
[2019-01-24] MEDS: morphine 4 MG/ML VIAL IV (19:09)
[2019-01-24] MEDS: ONDANSETRON 4 MG INJ IV (19:09)
[2019-01-24 19:26] LABS: ALANINE AMINOTRANSFERASE 21 IU/L (13-69); ALBUMIN 4.3 g/dl (3.3-4.9); ALBUMIN/GLOBULIN RATIO 1.16; ALKALINE PHOSPHATASE 71 IU/L (42-121); ANION GAP 8 (5-13); ASPARTATE AMINO TRANSFERASE 26 IU/L (15-46); BILIRUBIN,INDIRECT 0.3 mg/dl (0-1.1); BILIRUBIN,TOTAL 0.3 mg/dl (0.2-1.3); BLOOD UREA NITROGEN 36 mg/dl (7-20); CALCIUM 9.7 mg/dl (8.4-10.2); CARBON DIOXIDE 29 mmol/L (21-31); CHLORIDE 104 mmol/L (97-110); CREATININE 0.94 mg/dl (0.44-1.00); GLUCOSE 109 mg/dl (70-220); POTASSIUM 3.8 mmol/L (3.5-5.1); SODIUM 141 mmol/L (135-144)
[2019-01-24 19:37] LABS: TROPONIN-I < 0.012 ng/ml (0.000-0.120)
== END 2019-01-24 21:40 | disposition home or self-care (01) ==
LOC: E/R 16:08
DX: R20.0 Anesthesia of skin (principal); M79.604 Pain in right leg; M79.671 Pain in right foot; M79.601 Pain in right arm; M79.602 Pain in left arm; E86.0 Dehydration
CPT/HCPCS: 71045; 80053; 84484; 85025; 96374; 96375; 99284-25

== ENCOUNTER 2019-02-02 18:08 | Emergency (ER) | payer MEDICARE, OTHER | END 2019-02-02 19:45 | disposition home or self-care (01) | LOC: FTE 19:45 | DX: M13.831 Other specified arthritis, right wrist (principal); M13.832 Other specified arthritis, left wrist | CPT/HCPCS: 99283 ==

== ENCOUNTER 2019-02-06 09:20 | Emergency (ER) | payer MEDICARE, OTHER | END 2019-02-06 10:19 | disposition home or self-care (01) | LOC: FTE 09:20 | DX: R21 Rash and other nonspecific skin eruption (principal) | CPT/HCPCS: 99283 ==

== ENCOUNTER 2019-02-07 09:00 | Emergency (ER) | payer MEDICARE, OTHER ==
[2019-02-07 10:07] LABS: ADD MAN DIFF? NO
[2019-02-07 10:10] LABS: WHITE BLOOD COUNT 6.2 10^3/ul (4.8-10.8)
[2019-02-07 10:10] LABS: BASOPHILS % 0.2 % (0.0-2.0); EOSINOPHILS # 0.3 10^3/ul (0.0-0.5); EOSINOPHILS % 4.7 % (0.0-7.0); HEMOGLOBIN 10.6 g/dl (12.0-16.0); LYMPHOCYTES # 0.7 10^3/ul (0.8-2.9); LYMPHOCYTES % 10.9 % (15.0-51.0); MEAN CORPUSCULAR HGB CONC 31.2 g/dl (32.0-37.0); MEAN CORPUSCULAR VOLUME 89.9 fl (82.0-101.0); MEAN PLATELET VOLUME 10.6 fl (7.4-10.4); MONOCYTE # 0.4 10^3/ul (0.3-0.9); MONOCYTES % 6.7 % (0.0-11.0); NEUTROPHIL # 4.8 10^3/ul (1.6-7.5); NEUTROPHILS % 77.3 % (39.0-77.0); PLATELET COUNT 189 10^3/UL (140-415); RED BLOOD COUNT 3.78 10^6/ul (4.20-5.40); RED CELL DISTRIBUTION WIDTH 15.4 % (11.5-14.5)
[2019-02-07 10:25] LABS: ALANINE AMINOTRANSFERASE 17 IU/L (13-69); ALBUMIN 3.8 g/dl (3.3-4.9); ALBUMIN/GLOBULIN RATIO 1.11; ALKALINE PHOSPHATASE 71 IU/L (42-121); ANION GAP 8 (5-13); ASPARTATE AMINO TRANSFERASE 28 IU/L (15-46); BILIRUBIN,INDIRECT 0.6 mg/dl (0-1.1); BILIRUBIN,TOTAL 0.6 mg/dl (0.2-1.3); BLOOD UREA NITROGEN 25 mg/dl (7-20); CALCIUM 9.3 mg/dl (8.4-10.2); CARBON DIOXIDE 28 mmol/L (21-31); CHLORIDE 104 mmol/L (97-110); CREATININE 0.88 mg/dl (0.44-1.00); GLUCOSE 195 mg/dl (70-220); POTASSIUM 3.7 mmol/L (3.5-5.1); SODIUM 140 mmol/L (135-144); TOTAL PROTEIN 7.2 g/dl (6.1-8.1)
[2019-02-07 10:28] LABS: INR 0.97
== END 2019-02-07 11:25 | disposition home or self-care (01) ==
LOC: FTE 09:00
DX: D64.9 Anemia, unspecified (principal); R21 Rash and other nonspecific skin eruption; M79.89 Other specified soft tissue disorders
CPT/HCPCS: 80053; 85025; 85610; 85730; 99283

== ENCOUNTER 2019-02-11 18:02 | Emergency (ER) | payer MEDICARE, OTHER | END 2019-02-11 20:18 | disposition home or self-care (01) | LOC: FTE 20:18 | DX: S90.01XA Contusion of right ankle, initial encounter (principal); X58.XXXA Exposure to other specified factors, initial encounter; Y92.9 Unspecified place or not applicable | CPT/HCPCS: 73562; 73590; 93971; 99284-25 ==

== ENCOUNTER 2019-02-17 19:29 | Emergency (ER) | payer MEDICARE, OTHER | END 2019-02-17 20:45 | disposition home or self-care (01) | LOC: E/R 19:29 | DX: E86.0 Dehydration (principal); S40.022A Contusion of left upper arm, initial encounter; S80.11XA Contusion of right lower leg, initial encounter; X58.XXXA Exposure to other specified factors, initial encounter; Y92.9 Unspecified place or not applicable | CPT/HCPCS: 99282 ==

== ENCOUNTER 2019-02-19 18:24 | Emergency (ER) | payer MEDICARE, OTHER ==
[2019-02-19 20:06] LABS: ADD MAN DIFF? NO
[2019-02-19 20:14] LABS: WHITE BLOOD COUNT 5.9 10^3/ul (4.8-10.8)
[2019-02-19 20:14] LABS: BASOPHIL # 0.1 10^3/ul (0.0-0.1); BASOPHILS % 1.2 % (0.0-2.0); EOSINOPHILS # 0.2 10^3/ul (0.0-0.5); EOSINOPHILS % 3.6 % (0.0-7.0); HEMATOCRIT 35.4 % (37.0-47.0); LYMPHOCYTES % 17.1 % (15.0-51.0); MEAN CORPUSCULAR HEMOGLOBIN 28.2 pg (29.0-33.0); MEAN CORPUSCULAR HGB CONC 31.1 g/dl (32.0-37.0); MEAN CORPUSCULAR VOLUME 90.8 fl (82.0-101.0); MEAN PLATELET VOLUME 10.6 fl (7.4-10.4); MONOCYTE # 0.6 10^3/ul (0.3-0.9); MONOCYTES % 9.6 % (0.0-11.0); PLATELET COUNT 224 10^3/UL (140-415); RED CELL DISTRIBUTION WIDTH 15.7 % (11.5-14.5)
[2019-02-19 20:27] LABS: ALANINE AMINOTRANSFERASE 18 IU/L (13-69); ALBUMIN 4.1 g/dl (3.3-4.9); ALBUMIN/GLOBULIN RATIO 1.17; ALKALINE PHOSPHATASE 75 IU/L (42-121); ANION GAP 8 (5-13); ASPARTATE AMINO TRANSFERASE 25 IU/L (15-46); BILIRUBIN,INDIRECT 0.2 mg/dl (0-1.1); BILIRUBIN,TOTAL 0.2 mg/dl (0.2-1.3); BLOOD UREA NITROGEN 33 mg/dl (7-20); CALCIUM 8.9 mg/dl (8.4-10.2); CARBON DIOXIDE 26 mmol/L (21-31); CHLORIDE 109 mmol/L (97-110); CREATININE 0.94 mg/dl (0.44-1.00); GLUCOSE 76 mg/dl (70-220); POTASSIUM 3.9 mmol/L (3.5-5.1); SODIUM 143 mmol/L (135-144); TOTAL PROTEIN 7.6 g/dl (6.1-8.1)
[2019-02-19] MEDS: SOD CHLORIDE 0.9% 1,000 ML IV (20:38)
== END 2019-02-19 22:26 | disposition home or self-care (01) ==
LOC: E/R 18:24
DX: E86.0 Dehydration (principal)
CPT/HCPCS: 36415; 80053; 85025; 99284-25